=== PATIENT | male | born 1980 | race Caucasian/White ===

== ENCOUNTER 2023-12-04 17:04 | Emergency (ER) | payer SELFPAY ==
[2023-12-04] MEDS: Cyclobenzaprine 10 MG Tab PO ONE (21:25)
[2023-12-04] MEDS: methylPREDNISolone Sodium Succinate 40 MG/1 ML SDV IM ONE (21:28)
== END 2023-12-04 22:45 ==
LOC: JD.ED 17:04
DX: M54.42 Lumbago with sciatica, left side (principal)
CPT/HCPCS: 72100; 72100-26; 96372; 99283; 99284; A9270-GY; J2919